=== PATIENT | male | born 1985 | race Caucasian/White ===

== ENCOUNTER 2022-08-01 16:33 | Emergency (ER) | payer MEDICAID, OTHER ==
[~2022-08-01] VITALS: Ht 185.4 cm; Wt 118.0 kg
[2022-08-01] MEDS ORDERED: VISCOUS LIDOCAINE 2% 15 ML UDC PO STA (18:31)
[2022-08-01] MEDS ORDERED: MAGNESIUM/ALUMINUM HYDROXIDE/SIMETHICONE 30ML UDC PO STA (18:31)
[2022-08-01] MEDS ORDERED: FAMOTIDINE 20MG TABLET PO ONE (18:45)
[2022-08-01] MEDS ORDERED: FAMO-135 MT (20:59)
[2022-08-01] MEDS ORDERED: MAG-55 MT (20:59)
[2022-08-01 21:05] VITALS: BP 132/76
== END 2022-08-01 21:13 | disposition home or self-care (01) ==
LOC: ER 16:33
DX: R10.9 Unspecified abdominal pain (principal)
CPT/HCPCS: 93005; 99284

== ENCOUNTER 2022-08-02 12:58 | Inpatient (IN) | payer MEDICAID, OTHER ==
[~2022-08-02] VITALS: Ht 182.9 cm; Wt 125.2 kg
[~2022-08-02 12:58] MED LIST: FAMO-135 MT; MAG-55 MT
[2022-08-02] MEDS ORDERED: MORPHINE SULFATE 4 MG/ML CPJ (NOT FOR IM USE) IV STA (18:02)
[2022-08-02] MEDS ORDERED: ONDANSETRON HCL 4MG/2ML INJ IV STA (18:02)
[2022-08-02] MEDS ORDERED: PIPERACILLIN/TAZ 3.375G PREMIX 50 ML IV ONE (18:15)
[2022-08-02] MEDS ORDERED: SODIUM CHLORIDE 0.9% 1,000 ML IV ONE (18:15)
[2022-08-02 18:40] LABS: BASOPHILS % 0.3 % (0.0-2.0); EOSINOPHILS % 0.1 % (0.0-5.0); HEMATOCRIT. 47.7 % (42.0-52.0); HEMOGLOBIN. 15.7 g/dL (14.0-18.0); LYMPHOCYTES % 7.3 % (20.0-50.0); MEAN CORPUSCULAR HEMOGLOBIN 31.2 pg (28.0-32.0); MEAN PLATELET VOLUME 8.3 fl (7.4-10.4); MONOCYTES % 4.6 % (2.0-8.0); NEUTROPHILS % 87.7 % (40.0-76.0); PLATELET 208 x1000/uL (130-400); RED BLOOD CELL COUNT 5.02 mill/uL (4.7-6.1); RED CELL DISTRIBUTION WIDTH 12.9 % (11.6-14.6)
[2022-08-02 18:47] LABS: CHLORIDE 105 mEq/L (98-107)
[2022-08-02] MEDS ORDERED: ACETAMINOPHEN 325MG TABLET PO ONE (19:00)
[2022-08-02] MEDS ORDERED: LIDOCAINE HCL 1% 10 MG/ML 10ML VIAL ONE (19:29)
[2022-08-02] MEDS ORDERED: SKIN ADHESIVE 0.7 GM EA TOP ONE (19:29)
[2022-08-02] MEDS ORDERED: ONDANSETRON HCL 4MG/2ML INJ IV PRN ×2 (19:30→19:45)
[2022-08-02] MEDS ORDERED: SODIUM CHLORIDE 0.9% 1,000 ML IV SCH (19:30)
[2022-08-02] MEDS ORDERED: MORPHINE SULFATE 2 MG/ML CPJ (NOT FOR IM USE) IV PRN (19:30)
[2022-08-02] MEDS ORDERED: DIPHENHYDRAMINE 50MG/ML VIAL IV PRN (19:30)
[2022-08-02] MEDS ORDERED: IPRATROPIUM/ALBUTEROL 0.5-3(2.5)MG/3ML NEB HHN PRN (19:30)
[2022-08-02] MEDS ORDERED: CLONIDINE 0.1MG TABLET PO PRN (19:30)
[2022-08-02 19:46] LABS: CLARITY URINE CLEAR (CLEAR); COLOR URINE DARK YELLOW (YELLOW); KETONES URINE TRACE (NEGATIVE); LEUKOCYTE ESTERASE URINE TRACE (NEGATIVE); NITRITE URINE NEGATIVE (NEGATIVE); OCCULT BLOOD URINE NEGATIVE (NEGATIVE); PROTEIN URINE 1+ (NEGATIVE)
[2022-08-02] MEDS ORDERED: ROCURONIUM BROMIDE 10MG/ML VIAL 5ML IV ONE (19:51)
[2022-08-02] MEDS ORDERED: DEXAMETHASONE 4MG/ML 1ML VIAL ONE (19:51)
[2022-08-02] MEDS ORDERED: SUCCINYLCHOLINE CHLORIDE 200MG/10ML IV ONE (19:51)
[2022-08-02] MEDS ORDERED: NEOSTIGMINE METHYLSULFATE 1MG/ML 10 ML VIAL ONE (19:51)
[2022-08-02] MEDS ORDERED: ONDANSETRON HCL 4MG/2ML INJ ONE (19:51)
[2022-08-02] MEDS ORDERED: PROPOFOL 200MG/20ML VIAL IV ONE ×2 (19:52→20:06)
[2022-08-02] MEDS ORDERED: FENTANYL CITRATE/PF 50MCG/ML 2ML VIAL ONE (19:53)
[2022-08-02] MEDS ORDERED: GLYCOPYRROLATE 0.2 MG/ML 2ML VIAL ONE ×4 (19:53→20:45)
[2022-08-02] MEDS ORDERED: MIDAZOLAM HCL 2 MG/2 ML VIAL ONE (19:54)
[2022-08-02 20:07] LABS: INR 1.1; PROTHROMBIN TIME 12.1 sec (9.6-11.0)
[2022-08-02] MEDS ORDERED: HYDROMORPHONE HCL/PF 2MG/ML CPJ ONE (20:43)
[2022-08-02] MEDS: VANCOMYCIN 1G PREMIX 200 ML IV SCH (21:44)
[2022-08-02] MEDS ORDERED: HYDROMORPHONE HCL/PF 2MG/ML CPJ IV PRN (22:00)
[2022-08-02] MEDS ORDERED: METOCLOPRAMIDE HCL 10MG/2ML VIAL IV PRN (22:00)
[2022-08-03] VITALS: BP_SYST 124; BP_DIAS 54; BP_DIAS 59
[2022-08-03] MEDS: MORPHINE SULFATE 2 MG/ML CPJ (NOT FOR IM USE) IV PRN ×4 (01:37→22:30)
[2022-08-03 04:00] VITALS: BP 104/60
[2022-08-03] MEDS: ACETAMINOPHEN 325MG TABLET PO PRN ×2 (06:19→16:09)
[2022-08-03] MEDS: PIPERACILLIN/TAZOBACTAM 3.375 G in DEXTROSE 5% WATER 50 ML IV SCH ×2 (07:17→22:00)
[2022-08-03 08:00] VITALS: BP 108/54
[2022-08-03] MEDS: VANCOMYCIN 1G PREMIX 200 ML IV SCH ×3 (09:14→21:32)
[2022-08-03] MEDS: MORPHINE SULFATE 4 MG/ML CPJ (NOT FOR IM USE) IV PRN (11:39)
[2022-08-03] MEDS: DEXT 5%/0.45% NACL KCL 20MEQ/L 1,000 ML IV SCH ×3 (11:39→16:00)
[2022-08-03 11:47] LABS: BASOPHILS % 0.2 % (0.0-2.0); HEMATOCRIT. 41.2 % (42.0-52.0); HEMOGLOBIN. 14.1 g/dL (14.0-18.0); LYMPHOCYTES % 11.8 % (20.0-50.0); MEAN CORPUSCULAR HEMOGLOBIN 31.6 pg (28.0-32.0); MEAN CORPUSCULAR VOLUME 92.7 fL (80.0-94.0); MEAN PLATELET VOLUME 8.5 fl (7.4-10.4); MONOCYTES % 5.3 % (2.0-8.0); NEUTROPHILS % 82.7 % (40.0-76.0); PLATELET 182 x1000/uL (130-400); RED BLOOD CELL COUNT 4.45 mill/uL (4.7-6.1); RED CELL DISTRIBUTION WIDTH 12.8 % (11.6-14.6)
[2022-08-03 12:00] VITALS: BP 118/60
[2022-08-03] MEDS ORDERED: IPRATROPIUM BROMIDE (0.02%) 0.5MG/2.5ML NEB HHN PRN (15:00)
[2022-08-03] MEDS ORDERED: NALOXONE HCL 0.4MG/ML VIAL IV PRN (15:00)
[2022-08-03] MEDS ORDERED: ALBUTEROL (0.083%) 2.5MG/3ML NEB HHN PRN (15:00)
[2022-08-03 16:00] VITALS: BP 122/64
[2022-08-03 16:24] VITALS: BP 119/68
[2022-08-04] MEDS: DEXT 5%/0.45% NACL KCL 20MEQ/L 1,000 ML IV SCH ×2 (02:00→17:02)
[2022-08-04] MEDS: MORPHINE SULFATE 4 MG/ML CPJ (NOT FOR IM USE) IV PRN (05:45)
[2022-08-04] MEDS: PIPERACILLIN/TAZOBACTAM 3.375 G in DEXTROSE 5% WATER 50 ML IV SCH ×3 (05:45→21:08)
[2022-08-04] MEDS: VANCOMYCIN 1G PREMIX 200 ML IV SCH ×3 (05:45→20:27)
[2022-08-04 08:00] VITALS: BP 127/61
[2022-08-04] MEDS: HYDROCODONE/ACETAMINOPHEN 5/325MG TABLET PO PRN ×2 (10:04→22:29)
[2022-08-04] MEDS: ACETAMINOPHEN 325MG TABLET PO PRN (10:56)
[2022-08-04 12:00] VITALS: BP 112/68
[2022-08-04] MEDS: CALCIUM CARBONATE 500MG TABLET CHEW PO PRN ×2 (15:26→20:25)
[2022-08-04 16:00] VITALS: BP 132/74
[2022-08-04] MEDS ORDERED: CALCIUM CARBONATE 500MG TABLET CHEW PO SCH (17:50)
[2022-08-04 20:00] VITALS: BP 125/84
[2022-08-05] VITALS: BP 128/85
[2022-08-05] MEDS: DEXT 5%/0.45% NACL KCL 20MEQ/L 1,000 ML IV SCH (01:15)
[2022-08-05 04:00] VITALS: BP 135/95
[2022-08-05] MEDS: PIPERACILLIN/TAZOBACTAM 3.375 G in DEXTROSE 5% WATER 50 ML IV SCH (05:30)
[2022-08-05 07:07] LABS: HEMATOCRIT. 38.2 % (42.0-52.0); HEMOGLOBIN. 13.4 g/dL (14.0-18.0); MEAN CORPUSCULAR HEMOGLOBIN 32.1 pg (28.0-32.0); MEAN CORPUSCULAR VOLUME 91.3 fL (80.0-94.0); MEAN PLATELET VOLUME 8.8 fl (7.4-10.4); PLATELET 198 x1000/uL (130-400); RED BLOOD CELL COUNT 4.19 mill/uL (4.7-6.1)
[2022-08-05 08:00] VITALS: BP 121/82
[2022-08-05] MEDS ORDERED: AMOX1TAB16 MT (08:15)
[2022-08-05] MEDS ORDERED: ACET325T52 MT (08:15)
[2022-08-05] MEDS ORDERED: HYDR-4001 MT (08:15)
[2022-08-05 09:41] LABS: PLATELET ESTIMATE NORMAL
[2022-08-05 12:00] VITALS: BP 112/72
== END 2022-08-05 12:45 | disposition left against medical advice (07) | DRG 710 ==
LOC: ER 12:58 → 6EST 18:14 → ER 21:50
PROVIDERS: ADMIT Internal Medicine; ATTEND Internal Medicine
PROC: 0DTJ4ZZ Resection of Appendix, Percutaneous Endoscopic Approach (ICD-10-PCS; principal; 2022-08-02)
DX: A41.9 Sepsis, unspecified organism (principal); K35.33 Acute appendicitis with perforation, localized peritonitis, and gangrene, with abscess; Z53.29 Procedure and treatment not carried out because of patient's decision for other reasons
CPT/HCPCS: 36415; 74176; 80048; 80053; 80202; 81003; 84145; 85025; 86850; 86900; 88304; 99285; J0330; J1100; J1170; J2250; J2270; J2405; J2543; J2704; J2710; J3010; J3370; J3490; J7030; J7060